=== PATIENT | female | born 1990 | race Caucasian/White ===

== ENCOUNTER 2023-11-07 03:30 | Outpatient (CLI) | payer BC, SELFPAY ==
[2023-11-07 10:59] LABS: Abs Immature Grans 0.03 10^3/uL (0.0-0.06); Absolute Basophil Count 0.03 10^3/uL (0.0-0.2); Absolute Eosinophil Count 0.45 10^3/uL (0.0-0.7); Absolute Lymphocyte Count 1.82 10^3/uL (1.2-3.4); Absolute Monocyte Count 0.43 10^3/uL (0.1-0.8); Absolute Neutrophil Count 5.26 10^3/uL (1.2-6.7); Basophils % 0.4; Eosinophils % 5.6; HCT 37.5 % (36.0-46.0); HGB 12.8 g/dL (11.2-15.7); Immature Grans % 0.4; Lymphocytes % 22.7; MCH 32.1 pg (27.0-33.0); MCHC 34.1 % (32.0-36.0); MCV 94 fL (80-95); MPV 9.3 fL (8.0-11.0); Monocytes % 5.4; Neutrophils % 65.5; Platelet Count 223 10^3/uL (130-400); RBC 3.99 10^6/uL (3.93-5.22); WBC 8.02 10^3/uL (4.4-10.8)
[2023-11-07 11:16] LABS: Glucose,1 Hr (Glucola) 128 mg/dL (80-140)
[2023-11-07 18:40] LABS: Hepatitis B Surface Ag Negative (Negative)
[2023-11-07 19:05] LABS: Hepatitis C Ab w Rflx HCV PCR Negative (Negative)
[2023-11-07 19:53] LABS: HIV-1/2 Ag & Ab Screen Negative (Negative)
[2023-11-08 10:59] LABS: Rubella IgG Ab (UVM) Positive (See Note); Varicella IgG Antibody Positive (See Note)
[2023-11-09 16:27] LABS: Syphilis IgG w/Reflex Nonreactive (Nonreactive)
== END 2023-11-07 03:31 | disposition home or self-care (01) ==
PROVIDERS: Advanced Practice Midwife; Visit Provider Advanced Practice Midwife
DX: Z34.91 Encounter for supervision of normal pregnancy, unspecified, first trimester (principal); Z3A.01 Less than 8 weeks gestation of pregnancy
CPT/HCPCS: 36415; 82950; 86787; 86803; 86850; 86900; 86901; 87340; 87389; 85025; 86762; 86780

== ENCOUNTER 2024-03-12 04:53 | Outpatient (CLI) | payer BC, SELFPAY ==
[2024-03-12 09:48] LABS: HCT 39.4 % (36.0-46.0); HGB 13.2 g/dL (11.2-15.7); MCH 33.2 pg (27.0-33.0); MCHC 33.5 % (32.0-36.0); MCV 99 fL (80-95); MPV 9.9 fL (8.0-11.0); Platelet Count 192 10^3/uL (130-400); RBC 3.98 10^6/uL (3.93-5.22); RDW 12.9 % (11.7-14.6); RDW-SD 46.7 fL; WBC 10.83 10^3/uL (4.4-10.8)
[2024-03-12 09:59] LABS: Glucose,1 Hr (Glucola) 136 mg/dL (80-140)
== END 2024-03-12 04:54 | disposition home or self-care (01) ==
LOC: LBO 04:54
PROVIDERS: Visit Provider Advanced Practice Midwife
DX: Z34.92 Encounter for supervision of normal pregnancy, unspecified, second trimester (principal); Z3A.28 28 weeks gestation of pregnancy
CPT/HCPCS: 36415; 82950; 85027

== ENCOUNTER 2024-03-20 05:07 | Outpatient (CLI) | payer BC, SELFPAY ==
[2024-03-20 09:19] LABS: Glucose 1 Hour 143 mg/dL
[2024-03-20 11:42] LABS: Glucose 3 Hour 77 mg/dL
== END 2024-03-20 05:08 | disposition home or self-care (01) ==
LOC: LBO 05:07
PROVIDERS: Visit Provider Advanced Practice Midwife
DX: O26.893 Other specified pregnancy related conditions, third trimester (principal); R73.09 Other abnormal glucose; Z3A.29 29 weeks gestation of pregnancy
CPT/HCPCS: 36415; 82951

== ENCOUNTER → 2024-04-09 12:24 | Outpatient (CLI) | payer BC, SELFPAY ==
--- NOTE | 2024-04-09 06:30 | DI.US_ITS ---
Exam(s) US OB HERMILO WEIGHT EXAM: US OB HERMILO WEIGHT CLINICAL HISTORY: size greater than dates,z3a.01. TECHNIQUE: Transabdominal obstetrical ultrasound performed. COMPARISON: No exams were available for comparison FINDINGS: Number of fetuses: 1 position: CEPHALIC Placental location: There is a grade 2 anterior placenta. No evidence of previa. BIOMETRIC DATA: BPD: 8.55cm, 34weeks 3days HC: 32.06cm, 36weeks 1day AC: 28.62cm, 32weeks 4days FL: 6.27cm, 32weeks 3days EFW: 2,117.64g, 4lb 11.64oz, 47.9% Composite Age: 33weeks 6days PAULY: 05/22/2024 Heart Rate: 154bpm Amniotic fluid index: 15.05cm. The largest pocket measures 4.3 cm. IMPRESSION: 1. Single live intrauterine gestation as above. 2. Estimated weight is 2118gms. This is the 48th percentile. 3. Amniotic fluid index is 15.1 cm. The largest pocket measures 4.3 cm. DATA REPOSITORY:
--- OUTSIDE RECORDS SUMMARY | 2024-04-09 12:27 | XMS_ITS | Patient Health Record ---
Author Name Unknown Organization [facility] Address [address] [place] [address] Care Team Providers Care Gore Cutter Name Role Phone OTHER PHYSICIANS, OTH Primary Care Provider Unav ailable Roxanna Hobson Unavailable [phone] REASON FOR REFERRAL No Information MEDICATIONS Medication SIG (Take, Route, Frequency, Duration) Notes Start Date End Date Status Vitamin D (Ergocalciferol) 1.25 MG (61036 UT) 1 capsule Orally for 30 day(s) Active SOCIAL HISTORY Sex Assigned At : Social History Observation Description Sex Assigned At Unknown PLAN OF TREATMENT No Information Insurance Providers Payer Name Payer Address Payer Phone Subscriber Number Group Number Insured Name Patient Relationship to Insured Coverage Start Date Coverage End Date [employer] [facility] [address] [place] [address] [id number] SAMRA FISH Self - patient is the insured [place] [address] SAMRA FISH Self - patient is the insured MEDICAL (GENERAL) HISTORY Medical History History ICD Code history of plantar fasciitis disorder Surgical History Surgery Date(Month/Year) Hospitalization History Reason Date(Month/Year) giving x2
== END ==
PROVIDERS: PCP Nurse Practitioner Family; Visit Provider Advanced Practice Midwife
DX: Z3A.01 Less than 8 weeks gestation of pregnancy (principal)
CPT/HCPCS: 76816

== ENCOUNTER 2024-05-07 10:00 | Outpatient (REF) | payer BC, SELFPAY | END 2024-05-07 10:01 | disposition home or self-care (01) | LOC: LBN 10:00 | PROVIDERS: PCP Nurse Practitioner Family; Visit Provider Advanced Practice Midwife | DX: Z34.93 Encounter for supervision of normal pregnancy, unspecified, third trimester (principal); Z36.85 Encounter for antenatal screening for Streptococcus B; Z3A.36 36 weeks gestation of pregnancy | CPT/HCPCS: 87081 ==

== ENCOUNTER 2024-05-28 19:18 | Inpatient (IN) | payer BC, SELFPAY ==
[2024-05-28] VITALS (13 sets, daily range): BP systolic 126–150; BP diastolic 65–87; PULSE 61–82; RESP 16–17; TEMP 36.5–36.7; O2SAT 100
--- NOTE | 2024-05-28 20:07 | W.PM.OBHPL1 ---
Date of service: 05/28/24 Time of Service: 20:08 Assessment and Plan Assessment and plan (1) Spontaneous onset of labor: Status: Acute Assessment and plan: Admit to Center and routine admission labs. Comfort measures. Brandy requests to use the tub. Anticipate . OB-HPI Labor/Delivery History of Present Illness Reason for Visit: RULE OUT LABOR Chief Complaint: Uterine Contractions. PAULY Calculator Estimated Delivery Date Method Current WG Current Estimate 05/31/24 LMP (Certain) 39w 4d Other Estimates 06/02/24 Ultrasound #1 39w 2d Comments: Brandy arrived at the [facility] and reported strong, regular contractions at home. She denies rupture of membranes. History of Present Expected Delivery Route/Plan - CNM Kathie FOB/ - Oleksandr Beebe (third child together) Doesn't want to know gender prior to GBS negative Specific Issues/Plan 1. Declines all genetic screening, requests level 2 ultrasound @ [facility]=nml anatomy 2. BMI 33, early ilqrjju=126; 28 wk glucola 136, 3 hr GTT nml x4 3. Low risk multipara, 5P's and PHQ9 screen negative 4. Pap at initial OB insufficient cells, plan PP and pt aware 5. Ultrasound @ 32 wks for S>D: EFW in 48th percentile, HERMILO=15 PFSH All Active Problems (Updated 05/28/24 @ 20:10 by Siomara Gunter CNM) Spontaneous onset of labor (Acute) Third trimester (Acute) Elevated glucose (Acute) BMI 33.0-33.9,adult (Acute) Medical History (Updated 05/28/24 @ 20:10 by Siomara Gunter CNM) Missed menses Family History (Updated 03/26/24 @ 09:35 by Siomara Gunter CNM) Father Hypertension Maternal Grandmother Breast cancer Hypertension Paternal Grandmother Diabetes Social History Smoking/Tobacco Use Status: Never Smoking risk assessment performed?: Yes Alcohol Intake: never Substance use type: does not use Housing: house Do you feel safe at home: Yes Do you feel safe in your relationship?: Yes History History 3 Para 2 Hx # Term Pregnancies 2 Multiple births 0 Hx # Pregnancies 0 Ectopic pregnancies 0 AB induced 0 Hx Number of Living Children 2 AB spontaneous 0 Past Pregnancies Del. Date GA/Weeks # Preg Succ Route Wgt Sex Labor Lgth Anesthesia Location Prov Complic 09/15/17 39 No Yes vaginal 7 lb 10 oz Female 6 [facility] 05/18/19 39 No Yes vaginal 7 lb 7 oz Male 4 [facility] [place] Delivery Date: 09/15/17 Last Updated by: Rosina Mi IOL for PROM, nml Juniper Delivery Date: 05/18/19 Last Updated by: Rosina Mi PROM with spont labor, nml , Courtney Meds Allergies and Home Medications Allergies Allergy/AdvReac Type Severity Reaction Status Date / Time No Known Allergies Allergy Verified 05/21/24 14:47 Home Medications ?Medication ?Instructions ?Recorded ?Confirmed ?Type vit no.95-ferrous 1 tab PO DAILY 10/13/23 05/21/24 History fumarate 28 mg-folic acid 800 mcg tablet Exam Physical Exam Vital signs: Temp Pulse Resp BP 97.9 F 73 16 133/81 05/28/24 19:30 05/28/24 19:30 05/28/24 19:30 05/28/24 19:30 Vital Signs Reviewed: Yes Constitutional Constitutional: no acute distress Detailed Labor and Delivery Exam Dilation: 6 Effacement (%): 90 station: -1 Cervix position: mid Consistency: soft Dennis Score: Cervical Points Exam 0 1 2 3 Dilation Closed 1-2cm 3-4 cm 5-6cm Effacement 0-30% 40-50% 60-70% 80% Consistency Firm Medium Soft Station -3 -2 -1,0 +1,+2 Position Posterior Mid Anterior Amniotic Membrane Status: Intact Monitor Mode: External Contraction Frequency(min): every 5 min Contraction Duration(sec): 60 Contraction Intensity: Moderate Fetus A Heart Rate Baseline: 130 Monitor Accelerations: 15 X 15 Monitor Decelerations: None Variability: Moderate (6-25 BPM) Presentation: Cephalic Categories: Category I Est. Weight: 8 lb HEENT Exam HEENT Exam: Normal Respiratory Exam Respiratory Exam: Normal Cardiovascular Exam Cardiovascular Exam: Normal Abdominal Exam Abdominal Exam: Normal Exam Exam: Normal Extremities Exam Extremities Exam: Normal Skin Exam Skin Exam: Normal Psychiatric Exam Psychiatric Exam: Normal Results Results Group Beta Strep: Negative Blood Type: O+ Rubella Status: Immune Varicella Immunity: Immune Risk Assessment Risk for Shoulder Dystocia Historical/Initial OB: NEGATIVE FOR: Pelvic Abnormality, Pre- BMI>30, Previous Shoulder Dystocia or Previous Macrosomia 36 Weeks: NEGATIVE FOR: Current Gestational DM, EFW>4500gms or Maternal Weight Gain>40lbs 40 Weeks: NEGATIVE FOR: EFW> 4500 gms, Maternal Weight Gain >40lb or Post Dates Increased Risk?: No Risk for Pre-Eclampsia Date Initiated/Initials: not indicated, JK Yes, if one or more: NEGATIVE FOR: Hx Pre-E/Gest HTN, Chronic HTN, Multiple Gestation, Pre-gestational DM, Renal Disease, Systemic Lupus or APA Syndrome Yes, if 2 or more: POSITIVE FOR: BMI>30; NEGATIVE FOR: Nulliparity, Age>= 35 yrs, >10yr btwn pregnancies, ethinicty, Mother/Sister w/ Pre-E or Previous IUGR Risk for Post- Hemorrhage Initial: NEGATIVE FOR: Multiple Gestation, Previous PPH, Known Clotting Deficiency, Grand Multiparity or Anticoagulation 36 Weeks: NEGATIVE FOR: Anemia, hgb<10, Low platelets(thrombocytopenia), Gestational HTN or Pre-E, Polyhydraminios or EFW>4500gms 40 Weeks: NEGATIVE FOR: Anemia, hgb<10, Low platelets (thrombocytopenia), Gestation HTN or Pre-E, Polyhydraminios or EFW>4500gms At Risk?: No Risks Reviewed Risks Reviewed Upon Admission: Yes
[2024-05-28 20:30] LABS: HCT 37.9 % (36.0-46.0); HGB 12.9 g/dL (11.2-15.7); MCH 33.3 pg (27.0-33.0); MCV 98 fL (80-95); MPV 10.3 fL (8.0-11.0); Platelet Count 181 10^3/uL (130-400); RBC 3.87 10^6/uL (3.93-5.22); RDW 13.2 % (11.7-14.6); RDW-SD 46.9 fL; WBC 11.02 10^3/uL (4.4-10.8)
[2024-05-28] MEDS: Oxytocin 10 UNITS/ML VIAL IM (21:00)
--- NOTE | 2024-05-28 21:37 | OBVDS_ITS ---
Date of service: 05/28/24 Time of Service: 21:38 OB Labor/ Delivery Information Baby A Delivery Delivery Method: Spontaneaous Presentation: Cephalic Cephalic Position: Vertex Vertex Position: Right Occipital Anterior Cord Description-Baby A: 3 Vessels Cord Description Comment: nuchal cord x 3 Amniotic Fluid: Clear Estimated Blood Loss: 250 Delivery Outcome: Liveborn Transferred: Remains with Mother Note: Brandy got in the tub for comfort. She soon began to feel an urge to bear down and was examined and was 8 cms and +1 station. FHTs 130s during first stage of labor. She progressed rapidly to full dilation and pushed one time and delivered the baby's head. Spontaneous delivery of male delivered in APPLE position. There were three loops of cord around the baby's neck. He was placed in mother's arms and kept in the water for warmth. He had a spontaneous cry. Cord was clamped and cut by the baby's fathere after it stopped pulsing. Brandy was moved to the bed and the placenta delivered spontaneously and appears to by intact with a three vessel cord. Pitocin 10 units was administered before delivery of the placenta. The perineum was inspected and it was intact. The baby did breastfeed. After delivery, Mother and baby and father of the baby were stable and bonding well in the delivery room and there were no complications. Providers Nurse Clinical Leader: Siomara Gunter Nurse: Amarilis Lopez Nurse: Angie Mi Labor/Delivery Information Number of Babies in Womb: 1 Steroids Given: None Reason Steroids Not Administered: N/A Group Beta Strep: Negative Antibiotics Administered: No Rubella Status: Immune Blood Type: O+ Varicella Immunity: Immune Medication in Delivery: none Born En Route: No Maternal Complications: None Shoulder Dystocia: No Stages of Labor Onset of Labor Date: 05/27/24 Onset of Labor Time: 23:00 Complete Dilatation Date: 05/28/24 Complete Dilatation Time: 20:47 Labor - Stage 1 Duration: 21 hours and 47 minutes ROM Baby A: 05/28/24 ROM Baby A: 20:47 ROM Total Time- Baby A: [id number] Delivery Date-Baby A: 05/28/24 Delivery Time-Baby A: 20:47 Labor Stage 2 Duration: 0 minutes Placenta Delivery Date-Baby A: 05/28/24 Placenta Delivery Time-Baby A: 21:01 Labor-Stage 3 Duration: 14 minutes Total Length of Labor-Baby A: 21 hours and 47 minutes Placenta Cultured: No Placenta Status: Delivered Baby A Gender: Male Gestational Status: Term (39-41.6 wks) Gestational Age in Weeks/Days: 39 Weeks and 6 Days Score-1 Minute Interval(Baby A) Heart Rate-1 minute: 100 BPM or Greater Respiratory Effort- 1 minute: Spontaneous/Strong Cry Muscle Tone-1 minute: Active Movement Reflex Response-1 minute: Prompt Response Color-1 minute: Bluish Hands or Feet Total Score-1 minute: 9 Score-5 Minute Interval(Baby A) Heart Rate- 5 minute: 100 BPM or Greater Respiratory Effort-5 minute: Spontaneous/Strong Cry Muscle Tone-5 minute: Active Movement Reflex Response-5 minute: Prompt Response Color-5 minute: Bluish Hands or Feet Total Score- 5 minute: 9
[2024-05-28] MEDS: Hamamelis Leaf/Glycerin 100 EACH BOX PR (23:32)
[2024-05-28] MEDS: Dibucaine 1% 28 GM TUBE TP (23:32)
[2024-05-28] MEDS: Acetaminophen 325 MG TAB 650 MG PO (23:33)
[2024-05-28] MEDS: Ibuprofen 600 MG TAB PO (23:33)
[2024-05-29 00:32] VITALS: BP 112/58; PULSE 58; RESP 16; TEMP 37; O2SAT 97
[2024-05-29 00:33] VITALS: PULSE 61; O2SAT 96
[2024-05-29] MEDS: Acetaminophen 325 MG TAB 650 MG PO ×4 (06:02→22:04)
[2024-05-29] MEDS: Ibuprofen 600 MG TAB PO ×3 (06:02→18:05)
[2024-05-29 07:36] VITALS: BP 113/75; PULSE 82; RESP 12; TEMP 37.4
[2024-05-29 16:00] VITALS: BP 119/75; RESP 12; O2SAT 97
[2024-05-29 19:30] VITALS: BP 118/82; PULSE 81; RESP 16; TEMP 36.6; O2SAT 98
--- NOTE | 2024-05-30 07:38 | W.PM.OBPNV1 ---
Date of service: 05/29/24 Time of Service: 15:00 Assessment and Plan Assessment and plan (1) Term delivered: Status: Acute Assessment and plan: A: PPD#1, nml recovery going well Pt happy with experience P: Will discharge tomorrow, Pt plans condoms for BCM Subjective Subjective Patient comments: No complaints, Pain well controlled, Tolerating diet and Flatus present Patient's Mood: happy baby status: Doing well, Nursing well, Rooming in and Strong Bonding Observed feeding status: Exclusively breast feeding Exam Physical Exam Vital signs: Temp Pulse Resp BP Pulse Ox 97.9 F 81 16 118/82 98 05/29/24 19:30 05/29/24 19:30 05/29/24 19:30 05/29/24 19:30 05/29/24 19:30 Vital Signs Reviewed: Yes Constitutional Constitutional: no acute distress HEENT Exam HEENT Exam: Normal Neck Exam Neck Exam: Normal Breast Exam Bilateral: Breast Exam: Normal and Soft Nipple Exam: Normal and Uninjured Respiratory Exam Respiratory Exam: Normal Cardiovascular Exam Cardiovascular Exam: Normal Abdominal Exam Abdomen: Other (soft, nontender) Fundal Exam Fundus: Below Umbilicus and Firm Rectal Exam Rectal Exam: Not Done Exam Patient deferred: external exam Perineum: Intact Extremities Exam Extremity Exam: Normal Back/Spine/Pelvis Exam Back Exam: Normal Skin Exam Skin Exam: Normal Neurological Exam Neurological Exam: Normal Psychiatric Exam Psychiatric Exam: Normal
--- NOTE | 2024-05-30 07:42 | W.PM.OBPNV1 ---
Date of service: 05/30/24 Time of Service: 07:42 Assessment and Plan Assessment and plan (1) Term delivered: Status: Acute Assessment and plan: A: PPD#2, nml recovery P: Will discharge today, Pt plans condoms for BCM Written instructions reviewed adn given to pt F/up at 2 & 6 wks Subjective Subjective Patient comments: No complaints, Pain well controlled, Tolerating diet and Flatus present feeding status: Exclusively breast feeding Exam Physical Exam Vital signs: Temp Pulse Resp BP Pulse Ox 97.9 F 81 16 118/82 98 05/29/24 19:30 05/29/24 19:30 05/29/24 19:30 05/29/24 19:30 05/29/24 19:30 Vital Signs Reviewed: Yes Constitutional Constitutional: no acute distress HEENT Exam HEENT Exam: Normal Neck Exam Neck Exam: Normal Breast Exam Bilateral: Breast Exam: Normal and Soft Respiratory Exam Respiratory Exam: Normal Cardiovascular Exam Cardiovascular Exam: Normal Abdominal Exam Abdomen: Other (soft, nontender) Fundal Exam Fundus: Below Umbilicus and Firm Rectal Exam Rectal Exam: Not Done Exam Patient deferred: external exam Perineum: Intact Extremities Exam Extremity Exam: Normal Back/Spine/Pelvis Exam Back Exam: Normal Skin Exam Skin Exam: Normal Neurological Exam Neurological Exam: Normal Psychiatric Exam Psychiatric Exam: Normal
--- NOTE | 2024-05-30 07:43 | W.PM.OBDISCH ---
Date of service: 05/30/24 Time of Service: 07:40 DS: Diagnosis Discharge Diagnosis (1) Term delivered: Status: Acute Discharge Plan Disposition Patient Disposition: Home Condition: Good Discharge Details Reason For Visit: RULE OUT LABOR Admit Date/Time: 05/28/24 19:18 Admit Provider: Siomara Gunter Attending Provider: Siomara Gunter Primary Care Provider: ELSA PARDO Hospital Course Hospital Course: shortly after admission to unit, nml recovery. Home Meds and New Rx's Prescriptions: No Action PNV cmb#95-ferrous fumarate-FA 28 mg iron- 800 mcg tablet 1 tab PO DAILY Discharge Instructions Additional Instructions: Please keep 2 and 6 wk visits, call for any and all concerns Stand Alone Forms: BC Instructions, BC Post Vaginal Deliver Activity:: Activity as Tolerated Equipment/Supplies:: No Equipment Needed Diet:: Normal Diet OB:DS Summary Summary Vaginal Delivery Method: Spontaneaous Episiotomy Description: None Contraception Discussed Contraception Discussed: Yes Contraceptive Plan: Foam/Condoms, Infant Gender-Baby A: Male weight: 7 lb 11.459 oz Status at Discharge Functional status at discharge: independent ambulation Overall status at discharge: patient is progressing back to baseline Mental Status: mental status grossly normal Speech and Movement: speech and movement normal Mood: congruent mood Affect: normal affect Quality:SDOH Health Related Social Needs: No Data to Display Exam Physical Exam Vital signs: Temp Pulse Resp BP Pulse Ox 97.9 F 81 16 118/82 98 05/29/24 19:30 05/29/24 19:30 05/29/24 19:30 05/29/24 19:30 05/29/24 19:30 Constitutional Constitutional: no acute distress HEENT Exam HEENT Exam: Normal Neck Exam Neck Exam: Normal Breast Exam Bilateral: Breast Exam: Normal and Soft Respiratory Exam Respiratory Exam: Normal Cardiovascular Exam Cardiovascular Exam: Normal Abdominal Exam Abdomen: Other (soft, nontender) Fundal Exam Fundus: Below Umbilicus and Firm Rectal Exam Rectal Exam: Not Done Exam Patient deferred: external exam Perineum: Intact Extremities Exam Extremity Exam: Normal Back/Spine/Pelvis Exam Back Exam: Normal Skin Exam Skin Exam: Normal Neurological Exam Neurological Exam: Normal Psychiatric Exam Psychiatric Exam: Normal PFSH All Active Problems (Updated 05/30/24 @ 07:41 by Rosina Mi) Care and examination of lactating mother (Acute) Term delivered (Acute) BMI 33.0-33.9,adult (Acute) Medical History (Updated 05/30/24 @ 07:41 by Rosina Mi) Elevated glucose Third trimester Spontaneous onset of labor Missed menses Family History (Updated 03/26/24 @ 09:35 by Siomara Gunter CNM) Father Hypertension Maternal Grandmother Breast cancer Hypertension Paternal Grandmother Diabetes Social History Smoking/Tobacco Use Status: Never Smoking risk assessment performed?: Yes Alcohol Intake: never Substance use type: does not use Housing: house Do you feel safe at home: Yes Do you feel safe in your relationship?: Yes History History 3 Para 2 Hx # Term Pregnancies 2 Multiple births 0 Hx # Pregnancies 0 Ectopic pregnancies 0 AB induced 0 Hx Number of Living Children 2 AB spontaneous 0 Past Pregnancies Del. Date GA/Weeks # Preg Succ Route Wgt Sex Labor Lgth Anesthesia Location Prov Complic 09/15/17 39 No Yes vaginal 7 lb 10 oz Female 6 [facility] [place] 05/18/19 39 No Yes vaginal 7 lb 7 oz Male 4 [facility] [place] Delivery Date: 09/15/17 Last Updated by: Rosina Mi IOL for PROM, nml [place] Delivery Date: 05/18/19 Last Updated by: Rosina Mi PROM with spont labor, nml Courtney DS: Data Vitals/I&O Vitals and I&O: Vital Signs Temperature 97.9 F 05/29/24 19:30 Temperature 97.9 F 05/28/24 19:23 Temperature Source Oral 05/29/24 19:30 Pulse 81 05/29/24 19:30 Pulse 73 05/28/24 19:23 Pulse Rhythm Regular 05/29/24 19:30 Respiratory Rate 16 05/29/24 19:30 Blood Pressure 118/82 05/29/24 19:30 Blood Pressure 133/81 05/28/24 19:23 Blood Pressure Mean 94 05/29/24 19:30 Pulse Oximetry 98 05/29/24 19:30 Oxygen Delivery Method Room Air 05/28/24 19:30 Oxygen Flow Rate 0 05/28/24 19:30 Pain Level 5 05/29/24 22:04 Intake & Output 05/29/24 05/29/24 05/30/24 11:59 23:59 11:59 Intake Total 550 / 550 Output Total 500 / 500 Balance 50 / 50 Intake: Oral 550 / 550 Output: Urine 500 / 500 Other: Urine Color Yellow
[2024-05-30 08:07] VITALS: BP 128/76; PULSE 76; RESP 16; TEMP 36.6; O2SAT 99
== END 2024-05-30 08:35 | disposition home or self-care (01) | DRG 807 ==
PROVIDERS: Admitting Provider Advanced Practice Midwife; PCP Nurse Practitioner Family; Visit Provider Advanced Practice Midwife
DX: O69.81X0 Labor and delivery complicated by cord around neck, without compression, not applicable or unspecified (principal); Z37.0 Single live birth; Z3A.39 39 weeks gestation of pregnancy
CPT/HCPCS: 36415; 85027; 86850; 86900; 86901; J2590

== ENCOUNTER 2024-07-11 11:10 | Outpatient (REF) | payer BC, SELFPAY ==
--- NOTE | 2024-07-11 11:00 | PAPFT_PTH ---
PATIENT: Brandy Botello LOC: [facility] U#:[id number] AGE/SX: 33/F ROOM: RE07/11/[address]: Siomara Gunter : 1990 BED: DIS: 07/11/2024 SPEC #: [id number] RECD: 07/11/24 12:53 STATUS: TRACEY REQ #: [id number] LUIS: 07/11/24 11:[address]: Siomara Gunter DEPT: [facility] Cytology RECD BY: Dai Thurston ENTERED: 07/11/24 12:53 SP TYPE: PAPFT JADE DR: ELSA PARDO NP Tissues: 1 - CX/ENDOCX FOR PAP SMEARS Procedures: PAP THIN PREP/UVM Screening HPV DNA PROBE Comments: [id number] (HPV 16 & 18/45)
== END 2024-07-11 11:11 | disposition home or self-care (01) ==
LOC: LBN 11:10
PROVIDERS: PCP Nurse Practitioner Family; Visit Provider Advanced Practice Midwife
DX: Z12.4 Encounter for screening for malignant neoplasm of cervix (principal)
CPT/HCPCS: 88142; 87624